=== PATIENT | female | born 1970 | race Caucasian/White ===

== ENCOUNTER 2019-07-18 21:39 | Emergency (ER) | payer SELFPAY ==
[~2019-07-18] VITALS: Ht 172.7 cm; Wt 122.7 kg
[2019-07-18 21:50] VITALS: PULSE 108; TEMP 98.3
[2019-07-18] MEDS ORDERED: ZYRTEC 10MG10 MG PO (22:48)
[2019-07-19] MEDS ORDERED: MOBIC 7.5MG7.5 MG PO (00:01)
[2019-07-19 00:25] VITALS: BP 135/92
== END 2019-07-19 00:25 | disposition home or self-care (01) ==
LOC: COL.ER 21:39
DX: M53.3 Sacrococcygeal disorders, not elsewhere classified (principal); F17.210 Nicotine dependence, cigarettes, uncomplicated; W19.XXXA Unspecified fall, initial encounter
CPT/HCPCS: J1885

== ENCOUNTER 2019-08-02 20:17 | Emergency (ER) | payer SELFPAY ==
[~2019-08-02] VITALS: Ht 172.7 cm; Wt 118.2 kg
[~2019-08-02 20:17] MED LIST: MOBIC 7.5MG7.5 MG PO; ZYRTEC 10MG10 MG PO
[2019-08-02] MEDS ORDERED: PREDNISONE20 MG PO (21:54)
[2019-08-02] MEDS ORDERED: CHERATUSSIN AC120 ML PO (21:54)
[2019-08-02] MEDS ORDERED: ZITHROMAX Z PA250 MG PO (21:54)
[2019-08-02 22:45] VITALS: BP 132/80; PULSE 78; TEMP 98.8
== END 2019-08-02 22:50 | disposition home or self-care (01) ==
LOC: COL.ER 20:17
DX: J20.9 Acute bronchitis, unspecified (principal); F17.210 Nicotine dependence, cigarettes, uncomplicated
CPT/HCPCS: J7512

== ENCOUNTER 2019-08-23 18:48 | Emergency (ER) | payer SELFPAY ==
[~2019-08-23] VITALS: Ht 172.7 cm; Wt 122.7 kg
[~2019-08-23 18:48] MED LIST changes: +CHERATUSSIN AC120 ML PO; +PREDNISONE20 MG PO; +ZITHROMAX Z PA250 MG PO
[2019-08-23 18:51] VITALS: BP 138/71; TEMP 96.7
[2019-08-23 19:59] LABS: BASO % 0.3 % (0.0-2.0); EOS # 0.1 (0.0-0.7); EOS % 0.9 % (0-4.0); GRAN # 3.4 (1.4-6.5); GRAN % 58.2 % (42.2-75.2); HEMATOCRIT 40.2 % (37.0-47.0); HEMOGLOBIN 13.5 g/dl (12.5-16.0); LYMPH # 1.9 (1.2-3.4); LYMPH % 31.9 % (20.0-51.0); MEAN CELL VOLUME 94 fl (80.0-100.0); MEAN CORPUSCULAR HEMOGLOBIN 31 pg (27.0-31.0); MEAN CORPUSCULAR HGB CONC 34 g/dl (33.0-37.0); MEAN PLATELET VOLUME 9.2 fl (7.4-10.4); MONO # 0.5 (0.1-0.6); MONO % 8.4 % (1.7-9.3); PLATELET COUNT 224 K/mm3 (130-400); REDCELL DISTRIBUTION WIDTH-CV 13.2 % (11.5-14.5)
[2019-08-23 20:12] LABS: ALBUMIN 4.3 gm/dL (3.5-5.0); BILIRUBIN,TOTAL 0.5 mg/dL (0.0-1.0); CALCIUM 9.2 mg/dL (8.4-10.2); CREATININE, serum 0.8 (0.52-1.25); POTASSIUM 3.7 mmol/L (3.4-5.0); TOTAL PROTEIN 7.7 gm/dL (6.4-8.2)
[2019-08-23] MEDS ORDERED: TAMIFLU 75MG75 MG PO (21:32)
[2019-08-23] MEDS ORDERED: TESSALON P100 MG/CAP PO (21:33)
[2019-08-23 21:54] VITALS: PULSE 88
== END 2019-08-23 21:54 | disposition home or self-care (01) ==
LOC: COL.ER 18:48
PROVIDERS: Emergency Medicine
DX: J10.1 Influenza due to other identified influenza virus with other respiratory manifestations (principal); Z87.891 Personal history of nicotine dependence
CPT/HCPCS: J1885; Q9967

== ENCOUNTER 2020-02-01 12:11 | Emergency (ER) | payer SELFPAY ==
[~2020-02-01] VITALS: Ht 172.7 cm; Wt 129.5 kg
[~2020-02-01 12:11] MED LIST changes: +TAMIFLU 75MG75 MG PO; +TESSALON P100 MG/CAP PO
[2020-02-01 12:19] VITALS: BP 149/94; TEMP 98.2
[2020-02-01 13:17] LABS: BASO % 0.3 % (0.0-2.0); EOS # 0.2 (0.0-0.7); EOS % 1.5 % (0-4.0); GRAN # 8.7 (1.4-6.5); HEMATOCRIT 41.8 % (37.0-47.0); HEMOGLOBIN 14.2 g/dl (12.5-16.0); LYMPH # 2.5 (1.2-3.4); LYMPH % 20.4 % (20.0-51.0); MEAN CELL VOLUME 93 fl (80.0-100.0); MEAN CORPUSCULAR HEMOGLOBIN 32 pg (27.0-31.0); MEAN CORPUSCULAR HGB CONC 34 g/dl (33.0-37.0); MEAN PLATELET VOLUME 9.8 fl (7.4-10.4); MONO # 0.6 (0.1-0.6); MONO % 5.3 % (1.7-9.3); PLATELET COUNT 257 K/mm3 (130-400); REDCELL DISTRIBUTION WIDTH-CV 12.8 % (11.5-14.5)
[2020-02-01 13:29] LABS: ACETONE,SERUM NEGATIVE
[2020-02-01 13:32] LABS: ALANINE AMINOTRANSFERASE 153 U/L (4-34); ALBUMIN 4.2 gm/dL (3.5-5.0); ALKALINE PHOSPHATASE 87 U/L (50-136); ANION GAP 9 mmol/L (7-16); AST,SGOT 130 U/L (15-37); BILIRUBIN,TOTAL 0.8 mg/dL (0.0-1.0); BLOOD UREA NITROGEN 12 mg/dL (7-17); C-REACTIVE PROTEIN 3.1 mg/dL (0.0-0.9); CALCIUM 9.6 mg/dL (8.4-10.2); CARBON DIOXIDE 24 mmol/L (22-30); CHLORIDE 102 mmol/L (98-107); CREATININE, serum 0.69 (0.52-1.25); GLUCOSE 275 mg/dL (74-106); POTASSIUM 4.2 mmol/L (3.4-5.0); SODIUM 135 mmol/L (137-145); TOTAL PROTEIN 7.9 gm/dL (6.4-8.2)
[2020-02-01 13:46] LABS: COLLECTION METHOD CLEAN CATCH
[2020-02-01 13:58] LABS: MUCOUS Present /lpf; PH 5 (5-8); SQUAMOUS EPITHELIAL 0-2 /hpf; URINE APPEARANCE Clear; URINE BACTERIA None Seen /hpf; URINE BILIRUBIN Negative (NEGATIVE); URINE BLOOD 1+ (NEGATIVE); URINE COLOR Yellow; URINE GLUCOSE 1+ (NEGATIVE); URINE KETONE Negative (NEGATIVE); URINE LEUKOCYTE ESTERASE Negative (NEGATIVE); URINE NITRATE Negative (NEGATIVE); URINE PROTEIN(semi-quant) Negative (NEGATIVE); URINE RBC 0-2 /hpf; URINE UROBILINOGEN Negative (NEGATIVE)
[2020-02-01 16:07] VITALS: PULSE 90
== END 2020-02-01 16:09 | disposition home or self-care (01) ==
LOC: COL.ER 12:11
PROVIDERS: Nurse Practitioner
DX: R53.81 Other malaise (principal); R73.9 Hyperglycemia, unspecified
CPT/HCPCS: J1885; J7030

== ENCOUNTER 2021-03-14 18:37 | Emergency (ER) | payer SELFPAY ==
[~2021-03-14] VITALS: Ht 172.7 cm; Wt 106.8 kg
[2021-03-14 19:59] LABS: BASO # 0.1 (0.0-0.2); BASO % 0.5 % (0.0-2.0); EOS # 0.2 (0.0-0.7); EOS % 1.8 % (0-4.0); GRAN # 8.9 (1.4-6.5); GRAN % 76.8 % (42.2-75.2); HEMATOCRIT 42.2 % (37.0-47.0); HEMOGLOBIN 14.6 g/dl (12.5-16.0); LYMPH # 1.7 (1.2-3.4); MEAN CELL VOLUME 91 fl (80.0-100.0); MEAN CORPUSCULAR HEMOGLOBIN 32 pg (27.0-31.0); MEAN CORPUSCULAR HGB CONC 35 g/dl (33.0-37.0); MEAN PLATELET VOLUME 8.9 fl (7.4-10.4); MONO # 0.6 (0.1-0.6); MONO % 5.5 % (1.7-9.3); PLATELET COUNT 295 K/mm3 (130-400); RED BLOOD COUNT 4.63 M/mm3 (4.10-5.30); REDCELL DISTRIBUTION WIDTH-CV 12.9 % (11.5-14.5)
[2021-03-14 20:17] LABS: ALBUMIN 4.1 gm/dL (3.5-5.0); BILIRUBIN,TOTAL 0.6 mg/dL (0.2-1.2); CALCIUM 10.2 mg/dL (8.4-10.2); CREATININE, serum 1.02 mg/dL (0.57-1.11); TOTAL PROTEIN 7.9 gm/dL (6.2-8.1)
[2021-03-14 23:06] VITALS: BP 115/60; PULSE 90; TEMP 98.5
== END 2021-03-14 23:10 | disposition home or self-care (01) ==
LOC: COL.ER 18:37
PROVIDERS: Personal Emergency Response Attendant
DX: R20.2 Paresthesia of skin (principal); E11.9 Type 2 diabetes mellitus without complications; Z86.73 Personal history of transient ischemic attack (TIA), and cerebral infarction without residual deficits
CPT/HCPCS: J0780; J2060; J2270

== ENCOUNTER 2021-04-08 11:41 | Emergency (ER) | payer SELFPAY ==
[~2021-04-08] VITALS: Ht 172.7 cm; Wt 118.2 kg
[2021-04-08] MEDS ORDERED: DITROPAN 5MG TAB5 MG PO (11:48)
[2021-04-08] MEDS ORDERED: VICTOZA6 MG/ML SQ (11:48)
[2021-04-08] MEDS ORDERED: DEPAKOTE500 MG PO (11:49)
[2021-04-08] MEDS ORDERED: CELEXA 20MG20 MG/TAB PO (11:49)
[2021-04-08] MEDS ORDERED: PROAIR HFA0.09 MG/AC IH (11:49)
[2021-04-08] MEDS ORDERED: WELLBUTRIN SR150 M1 PO (11:49)
[2021-04-08 11:50] VITALS: TEMP 98
[2021-04-08] MEDS ORDERED: GLUCOTROL 5M5 MG/TAB PO (11:50)
[2021-04-08] MEDS ORDERED: MAGNESIUM OXID500 MG PO (11:50)
[2021-04-08] MEDS ORDERED: IMITREX50 MG PO (11:50)
[2021-04-08] MEDS ORDERED: CATAFLAM50 MG PO (11:50)
[2021-04-08] MEDS ORDERED: FLEXERIL 1010 MG/TAB PO (12:25)
[2021-04-08 12:37] VITALS: BP 149/96; PULSE 91
== END 2021-04-08 12:37 | disposition home or self-care (01) ==
LOC: COL.ER 11:41
DX: G89.29 Other chronic pain (principal); M54.50 Low back pain, unspecified; E11.9 Type 2 diabetes mellitus without complications; G43.909 Migraine, unspecified, not intractable, without status migrainosus; F17.210 Nicotine dependence, cigarettes, uncomplicated; Z79.899 Other long term (current) drug therapy; Z79.84 Long term (current) use of oral hypoglycemic drugs
CPT/HCPCS: J1885; J2360